=== PATIENT | female | born 1980 | race Caucasian/White ===

== ENCOUNTER 2016-09-26 18:50 | Emergency (ER) | payer MEDICAID ==
[~2016-09-26] VITALS: Wt 77.1 kg
[~2016-09-26 18:50] MED LIST: ALBUTEROL0.09 MG/A2 INH; BACTRIM DS 8001 TA1 PO; CEPHALEXIN500 M1 PO; CLARITIN10 MG PO; CORDROL20 MG PO; DARVOCET N 1001 TAB PO; DAYPRO600 M1 PO; DUONEB 3 MG/3 ML3 M1 INH; LEVAQUIN750 MG PO; MEDROL DOSEPAK4 MG PO; MOTRIN800 MG PO; PHENERGAN25 M1 PO; PREDNICOT20 MG PO; PREDNISONE10 MG PO; PRILOSEC40 MG PO; PROAIR HFA0.09 MG/AC IH; PROVENTIL0.09 MG/AC IH; PYRIDIUM200 MG PO; ROBAXIN750 MG PO; TRAMADOL50 MG PO; ULTRAM50 MG PO; VIBRAMYCIN100 MG PO; XANAX0.25 MG PO; XANAX0.5 MG PO; ZITHROMAX Z PA250 MG PO; ZITHROMAX250 MG PO; ZOFRAN ODT4 MG SL; ZYRTEC10 MG PO
[2016-09-26] MEDS ORDERED: PREDNISONE10 MG PO (19:02)
[2016-09-26] MEDS ORDERED: KEFLEX500 M1 PO (19:02)
[2016-09-26] MEDS ORDERED: BACTRIM DS 8001 TA1 PO (19:02)
[2016-09-26] MEDS ORDERED: CLARITIN10 MG PO (19:02)
== END 2016-09-26 19:19 | disposition home or self-care (01) ==
LOC: ED 18:50
DX: L02.413 Cutaneous abscess of right upper limb (principal); J45.901 Unspecified asthma with (acute) exacerbation; R03.0 Elevated blood-pressure reading, without diagnosis of hypertension; Z88.1 Allergy status to other antibiotic agents

== ENCOUNTER 2016-10-24 18:05 | Inpatient (IN) | payer MEDICAID ==
[~2016-10-24] VITALS: Ht 152.4 cm; Wt 80.3 kg
[2016-10-24] VITALS (7 sets, daily range): BP systolic 104–147; BP diastolic 60–80
--- NOTE | ~2016-10-24 | WRIGHTHP ---
[place], [place] PATIENT HISTORY AND PHYSICAL EXAM NAME: RICK MARES [facility] #: [id number] UNIT #: [id number] ROOM: [facility] DOCTOR: MARIANNA MASON DO BIRTHDATE: [birth year] DOS: 10/25/2016 PRIMARY CARE PHYSICIAN: Dr. Wolfe. The patient was seen and evaluated with the resident on 10/25/2016. Please see the resident's note for further details. ASSESSMENT: 1. Acute asthma exacerbation. 2. Chest tightness secondary to the asthma exacerbation. 3. Dyspnea on exertion secondary to the asthma exacerbation. 4. Anxiety with history of panic attacks. 5. Tobacco abuse. 6. Depression. PLAN: The patient already feels back to normal after her breathing treatments and steroids. She is no longer having chest tightness or shortness of breath. She will be discharged. She will be sent home with prescriptions for steroids, Zithromax and Symbicort. She is to follow up with Dr. Wolfe. MARIANNA MASON DO CM:HISPHYS:PATIENT HISTORY AND PHYSICAL EXAMINATION [id number] MARIANNA MASON DO 10/25/16 1600 interface
[~2016-10-24 18:05] MED LIST changes: +KEFLEX500 M1 PO; -XANAX0.5 MG PO; +XANAX1 MG PO
[2016-10-24 19:02] LABS: BASO # 0.1 10*3/uL (0.0-0.1); EOS # 0.2 10*3/uL (0.0-0.4); EOS % 2.4 % (1.0-4.0); HEMATOCRIT 44.2 % (37.0-47.0); HEMOGLOBIN 14.3 g/dl (12.0-16.0); LYMPH # 2.2 10*3/uL (1.3-4.4); LYMPH % 23.5 % (27.0-41.0); MEAN CORPUSCULAR HGB 30.4 pg (27.0-31.0); MEAN CORPUSCULAR HGB CONC 32.4 g/dl (33.0-37.0); MEAN PLATELET VOLUME 10.7 fl (9.6-12.3); MONO # 0.6 10*3/uL (0.1-1.0); MONO % 6.1 % (3.0-9.0); NEUT # 6.2 10*3/uL (2.3-7.9); NEUT % 66.7 % (47.0-73.0); PLATELET COUNT AUTOMATED 327 10*3/uL (130-400); RED CELL DISTRI WIDTH 13.7 % (0-14.5); WHITE BLOOD COUNT 9.2 10*3/uL (4.8-10.8)
[2016-10-24 19:09] LABS: PROTHROMBIN TIME 10.3 SECONDS (9.0-12.4)
[2016-10-24 19:18] LABS: ALBUMIN 3.7 gm/dl (3.1-4.5); ALKALINE PHOSPHATASE 96 U/L (45-117); BILIRUBIN, TOTAL 0.2 mg/dl (0.2-1.0); BUN 7 mg/dl (7-24); CARBON DIOXIDE 26 mmol/L (21-32); CHLORIDE 107 mmol/L (98-107); CPK 92 U/L (26-192); EST GLOM FILT AFRICAN AMERICAN > 60 ml/min; GLUCOSE 97 mg/dL (65-99); MAGNESIUM 2.1 mg/dL (1.5-2.1); POTASSIUM 4.6 mmol/L (3.5-5.1); SGOT/AST 14 IU/L (3-35); SGPT/ALT 20 U/L (12-78); SODIUM 144 mmol/L (136-145); TOTAL PROTEIN 7.2 gm/dL (6.4-8.2)
[2016-10-24 19:36] LABS: CKMB < 0.5 ng/ml (0.5-3.6); TROPONIN I < 0.015 ng/ml (<0.045)
[2016-10-24 19:40] LABS: BILIRUBIN NEGATIVE (NEGATIVE); BLOOD NEGATIVE (NEGATIVE); CLARITY CLEAR (CLEAR); COLOR YELLOW (YELLOW); GLUCOSE NEGATIVE (NEGATIVE); KETONE NEGATIVE (NEGATIVE); LEUKO ESTERASE NEGATIVE (NEGATIVE); NITRITE NEGATIVE (NEGATIVE); PROTEIN NEGATIVE (NEGATIVE); SPECIFIC GRAVITY <= 1.005 (1.005-1.030); UROBILINOGEN 0.2 E.U./dl (0.2-1.0)
[2016-10-24 19:46] LABS: EPITHELIAL CELLS 20-25; URINE REFLEX COMMENT NO (NO); WBC 0-2 wbc/hpf (0-5)
[2016-10-25] VITALS: BP 144/75
[2016-10-25 01:12] LABS: CPK 90 U/L (26-192)
[2016-10-25 01:15] LABS: CKMB < 0.5 ng/ml (0.5-3.6)
[2016-10-25 06:21] LABS: HEMATOCRIT 39.6 % (37.0-47.0); HEMOGLOBIN 13.1 g/dl (12.0-16.0); MEAN CELL VOLUME 93.8 fl (81.0-99.0); MEAN CORPUSCULAR HGB CONC 33.1 g/dl (33.0-37.0); MEAN PLATELET VOLUME 11.2 fl (9.6-12.3); PLATELET COUNT AUTOMATED 304 10*3/uL (130-400); RED BLOOD COUNT 4.22 10*6/uL (4.10-5.10); RED CELL DISTRI WIDTH 13.8 % (0-14.5); WHITE BLOOD COUNT 11.2 10*3/uL (4.8-10.8)
[2016-10-25 06:42] LABS: CPK 78 U/L (26-192)
[2016-10-25 06:43] LABS: CKMB < 0.5 ng/ml (0.5-3.6)
[2016-10-25 06:44] LABS: PROTHROMBIN TIME 10.3 SECONDS (9.0-12.4)
[2016-10-25 06:57] LABS: ALBUMIN 3.4 gm/dl (3.1-4.5); BUN 12 mg/dl (7-24); CARBON DIOXIDE 22 mmol/L (21-32); CHLORIDE 108 mmol/L (98-107); GLUCOSE 160 mg/dL (65-99); LYMPHOCYTE # 0.9 10*3/uL (1.3-4.4); MAGNESIUM 1.9 mg/dL (1.5-2.1); MONOCYTE # 0.1 10*3/uL (0.1-1.0); NEUTROPHIL # 10.2 10*3/uL (2.3-7.9); NEUTROPHILS 91 % (47-73); SODIUM 142 mmol/L (136-145); TOTAL CELLS COUNTED 100 #CELLS
[2016-10-25 06:58] LABS: PLATELET SUFFICIENCY NORMAL (NORMAL)
[2016-10-25 07:04] LABS: ALKALINE PHOSPHATASE 93 U/L (45-117); BILIRUBIN, TOTAL 0.2 mg/dl (0.2-1.0); CHOLESTEROL 196 mg/dL (<200); EST GLOM FILT AFRICAN AMERICAN > 60 ml/min; FREE T4 0.97 ng/dl (0.76-1.46); HDL CHOLESTEROL 41 mg/dl (40-60); LDL CHOLESTEROL 139 mg/dL (9-159); PHOSPHOROUS 1.6 mg/dL (2.5-4.9); SGOT/AST 15 IU/L (3-35); SGPT/ALT 19 U/L (12-78); TOTAL PROTEIN 6.7 gm/dL (6.4-8.2); TRIGLYCERIDES 80 mg/dl (<150); VLDL CHOLESTEROL 16 mg/dL (6-40)
[2016-10-25 07:19] LABS: POTASSIUM 3.6 mmol/L (3.5-5.1)
[2016-10-25 07:42] LABS: HEMOGLOBIN A1c 5.7 % (4.8-5.6)
[2016-10-25 08:00] VITALS: BP 120/60
[2016-10-25 08:32] LABS: FOLIC ACID 7.37 ng/mL (>5.38); VITAMIN D, 25-HYDROXY 10.1 ng/mL (30-100)
[2016-10-25] MEDS ORDERED: PREDNISONE50 MG PO (10:02)
[2016-10-25] MEDS ORDERED: ZITHROMAX250 MG PO (10:02)
[2016-10-25] MEDS ORDERED: SYMBICORT1 AER INH (10:02)
[2016-10-25] MEDS ORDERED: MUCINEX ER600 MG PO (10:02)
[2016-10-25] MEDS ORDERED: NICOTINE T21 MG/24 H TD (10:02)
== END 2016-10-25 11:35 | disposition home or self-care (01) | DRG 194 ==
LOC: ED 18:05 → EDHOLD 20:42 → 5E 20:42
PROVIDERS: Hospitalist; Nurse Practitioner Family
DX: J18.9 Pneumonia, unspecified organism (principal); J45.31 Mild persistent asthma with (acute) exacerbation; F33.9 Major depressive disorder, recurrent, unspecified; F17.210 Nicotine dependence, cigarettes, uncomplicated; E66.9 Obesity, unspecified; F41.0 Panic disorder [episodic paroxysmal anxiety]; Z98.51 Tubal ligation status; Z82.3 Family history of stroke; Z83.3 Family history of diabetes mellitus; Z79.51 Long term (current) use of inhaled steroids; Z79.899 Other long term (current) drug therapy; Z88.1 Allergy status to other antibiotic agents; Z68.34 Body mass index [BMI] 34.0-34.9, adult

== ENCOUNTER 2017-04-26 14:15 | Emergency (ER) | payer OTHER ==
[~2017-04-26] VITALS: Ht 170.1 cm; Wt 77.1 kg
[~2017-04-26 14:15] MED LIST changes: +MUCINEX ER600 MG PO; +NICOTINE T21 MG/24 H TD; +PREDNISONE50 MG PO; +SYMBICORT1 AER INH
[2017-04-26] MEDS ORDERED: NAPROSYN500 MG PO (15:52)
== END 2017-04-26 15:58 | disposition home or self-care (01) ==
LOC: ED 14:15
DX: S00.12XA Contusion of left eyelid and periocular area, initial encounter (principal); J45.901 Unspecified asthma with (acute) exacerbation; F32.9 Major depressive disorder, single episode, unspecified; F41.0 Panic disorder [episodic paroxysmal anxiety]; F17.200 Nicotine dependence, unspecified, uncomplicated; Z68.34 Body mass index [BMI] 34.0-34.9, adult; Z79.899 Other long term (current) drug therapy; Z88.1 Allergy status to other antibiotic agents; X58.XXXA Exposure to other specified factors, initial encounter; Y93.89 Activity, other specified; Y92.89 Other specified places as the place of occurrence of the external cause; Y99.8 Other external cause status

== ENCOUNTER 2017-09-16 19:47 | Emergency (ER) | payer OTHER ==
[~2017-09-16] VITALS: Ht 157.4 cm; Wt 81.2 kg
[~2017-09-16 19:47] MED LIST changes: +NAPROSYN500 MG PO
[2017-09-16] MEDS ORDERED: PREDNISONE50 MG PO (20:01)
[2017-09-16] MEDS ORDERED: AVPAK AZITHROM250 M1 PO (21:00)
== END 2017-09-16 21:05 | disposition home or self-care (01) ==
LOC: ED 19:47
DX: S20.211A Contusion of right front wall of thorax, initial encounter (principal); J45.901 Unspecified asthma with (acute) exacerbation; F17.200 Nicotine dependence, unspecified, uncomplicated; E66.9 Obesity, unspecified; Z68.34 Body mass index [BMI] 34.0-34.9, adult; Z87.01 Personal history of pneumonia (recurrent); Z98.51 Tubal ligation status; Z90.89 Acquired absence of other organs; Z79.899 Other long term (current) drug therapy; Z88.1 Allergy status to other antibiotic agents; W50.0XXA Accidental hit or strike by another person, initial encounter; Y93.89 Activity, other specified; Y92.89 Other specified places as the place of occurrence of the external cause; Y99.9 Unspecified external cause status

== ENCOUNTER 2017-09-30 04:32 | Emergency (ER) | payer OTHER ==
[~2017-09-30] VITALS: Ht 142.2 cm; Wt 77.1 kg
[~2017-09-30 04:32] MED LIST changes: +AVPAK AZITHROM250 M1 PO
[2017-09-30] MEDS ORDERED: KEFLEX500 M1 PO (06:44)
== END 2017-09-30 06:57 | disposition home or self-care (01) ==
LOC: ED 04:32
DX: S51.011A Laceration without foreign body of right elbow, initial encounter (principal); S66.911A Strain of unspecified muscle, fascia and tendon at wrist and hand level, right hand, initial encounter; S40.022A Contusion of left upper arm, initial encounter; S40.021A Contusion of right upper arm, initial encounter; E66.9 Obesity, unspecified; Z88.1 Allergy status to other antibiotic agents; Z68.34 Body mass index [BMI] 34.0-34.9, adult; Y04.0XXA Assault by unarmed brawl or fight, initial encounter; Y93.89 Activity, other specified; Y92.89 Other specified places as the place of occurrence of the external cause; Y99.8 Other external cause status

== ENCOUNTER 2018-10-20 16:38 | Emergency (ER) | payer OTHER ==
[~2018-10-20] VITALS: Ht 157.4 cm; Wt 80.3 kg
[~2018-10-20 16:38] MED LIST changes: +ASPIRIN ADULT L81 M2 PO; +LISINOPRIL5 MG PO; +PROAIR HFA8.5 GM INH
[2018-10-20] MEDS ORDERED: CEPHALEXIN500 M1 PO (17:28)
[2018-10-20] MEDS ORDERED: Tobrex Ophth S2.5 ML OPH (17:28)
== END 2018-10-20 17:43 | disposition home or self-care (01) ==
LOC: ED 16:38
DX: H04.302 Unspecified dacryocystitis of left lacrimal passage (principal); F17.200 Nicotine dependence, unspecified, uncomplicated; Z88.1 Allergy status to other antibiotic agents

== ENCOUNTER 2018-12-06 19:39 | Emergency (ER) | payer OTHER ==
[~2018-12-06] VITALS: Wt 77.1 kg
[~2018-12-06 19:39] MED LIST changes: +Tobrex Ophth S2.5 ML OPH
[2018-12-06] MEDS ORDERED: IBU800 MG PO (21:06)
== END 2018-12-06 23:15 | disposition home or self-care (01) ==
LOC: ED 19:39
DX: S62.315A Displaced fracture of base of fourth metacarpal bone, left hand, initial encounter for closed fracture (principal); M79.641 Pain in right hand; J45.909 Unspecified asthma, uncomplicated; I10 Essential (primary) hypertension; I25.10 Atherosclerotic heart disease of native coronary artery without angina pectoris; E66.9 Obesity, unspecified; F17.200 Nicotine dependence, unspecified, uncomplicated; Z88.1 Allergy status to other antibiotic agents; Z79.2 Long term (current) use of antibiotics; Z68.30 Body mass index [BMI] 30.0-30.9, adult; W18.39XA Other fall on same level, initial encounter; Y93.89 Activity, other specified; Y92.098 Other place in other non-institutional residence as the place of occurrence of the external cause; Y99.8 Other external cause status

== ENCOUNTER 2020-05-07 21:14 | Emergency (ER) | payer OTHER ==
[~2020-05-07 21:14] MED LIST changes: +IBU800 MG PO
== END 2020-05-08 00:07 | disposition left against medical advice (07) ==
LOC: ED 21:14
DX: J45.909 Unspecified asthma, uncomplicated (principal); R07.89 Other chest pain; Z53.21 Procedure and treatment not carried out due to patient leaving prior to being seen by health care provider

== ENCOUNTER 2020-07-02 17:09 | Emergency (ER) | payer OTHER ==
[~2020-07-02] VITALS: Wt 79.4 kg
[2020-07-02] MEDS ORDERED: PROVENTIL HFA6.7 GM INH (17:22)
[2020-07-02] MEDS ORDERED: Motrin,Rufen800 MG PO (21:14)
[2020-07-02] MEDS ORDERED: AUGMENTIN 875875 MG PO (21:14)
== END 2020-07-02 21:18 | disposition home or self-care (01) ==
LOC: ED 17:09
DX: S62.635A Displaced fracture of distal phalanx of left ring finger, initial encounter for closed fracture (principal); S00.83XA Contusion of other part of head, initial encounter; S40.022A Contusion of left upper arm, initial encounter; S40.021A Contusion of right upper arm, initial encounter; S51.852A Open bite of left forearm, initial encounter; F32.9 Major depressive disorder, single episode, unspecified; J45.909 Unspecified asthma, uncomplicated; F41.9 Anxiety disorder, unspecified; I10 Essential (primary) hypertension; Z88.8 Allergy status to other drugs, medicaments and biological substances; Z79.899 Other long term (current) drug therapy; Z98.890 Other specified postprocedural states; Z98.51 Tubal ligation status; Y08.89XA Assault by other specified means, initial encounter; Y93.89 Activity, other specified; Y92.89 Other specified places as the place of occurrence of the external cause; Y99.8 Other external cause status

== ENCOUNTER 2021-11-23 12:09 | Emergency (ER) | payer OTHER ==
[~2021-11-23] VITALS: Wt 77.1 kg
[~2021-11-23 12:09] MED LIST changes: +AUGMENTIN 875875 MG PO; +Motrin,Rufen800 MG PO; +PROVENTIL HFA6.7 GM INH
[2021-11-23 13:34] LABS: BASO # 0.1 10*3/uL (0.0-0.1); BASO % 0.9 % (0.0-1.0); EOS # 0.1 10*3/uL (0.0-0.4); EOS % 1.4 % (1.0-4.0); HEMATOCRIT 45.3 % (37.0-47.0); LYMPH # 2.1 10*3/uL (1.3-4.4); LYMPH % 26.4 % (27.0-41.0); MEAN CELL VOLUME 95.4 fl (81.0-99.0); MEAN CORPUSCULAR HGB 30.7 pg (27.0-31.0); MEAN CORPUSCULAR HGB CONC 32.2 g/dl (33.0-37.0); MEAN PLATELET VOLUME 10.4 fl (9.6-12.3); MONO # 0.7 10*3/uL (0.1-1.0); MONO % 8.8 % (3.0-9.0); NEUT # 4.9 10*3/uL (2.3-7.9); NEUT % 62.2 % (47.0-73.0); PLATELET COUNT AUTOMATED 288 10*3/uL (130-400); RED BLOOD COUNT 4.75 10*6/uL (4.10-5.10); RED CELL DISTRI WIDTH 14.3 % (0-14.5); WHITE BLOOD COUNT 7.8 10*3/uL (4.8-10.8)
[2021-11-23 13:45] LABS: ACT PARTIAL THROMBO TIME 27.3 SECONDS (20.0-32.1)
[2021-11-23 13:51] LABS: ALKALINE PHOSPHATASE 84 U/L (45-117); BUN 10 mg/dl (7-24); CHLORIDE 108 mmol/L (98-107); CREATININE 0.93 mg/dL (0.55-1.02); LIPASE 123 U/L (73-393); SGOT/AST 16 IU/L (3-35); SGPT/ALT 18 U/L (12-78); SODIUM 139 mmol/L (136-145); TOTAL PROTEIN 7.3 gm/dL (6.4-8.2)
[2021-11-23] MEDS ORDERED: VISTARIL25 M2 PO (15:49)
== END 2021-11-23 16:10 | disposition home or self-care (01) ==
LOC: ED 12:09
PROVIDERS: Physician Assistant
DX: F41.0 Panic disorder [episodic paroxysmal anxiety] (principal); Z88.1 Allergy status to other antibiotic agents; Z90.89 Acquired absence of other organs; Z98.51 Tubal ligation status; Z87.891 Personal history of nicotine dependence

== ENCOUNTER 2021-12-01 17:11 | Emergency (ER) | payer OTHER ==
[~2021-12-01] VITALS: Wt 81.6 kg
[~2021-12-01 17:11] MED LIST changes: +VISTARIL25 M2 PO
[2021-12-01] MEDS ORDERED: BUDESONIDE-FO10.2 G1 INH (17:57)
[2021-12-01 19:12] LABS: BILIRUBIN Negative (Negative); BLOOD 2+ (Negative); CLARITY Clear (Clear); COLOR Yellow (Yellow); GLUCOSE Negative (Negative); KETONE Negative (Negative); LEUKO ESTERASE 2+ (Negative); NITRITE Negative (Negative); PH 5.5 (4.5-8.0); UROBILINOGEN 0.2 E.U./dl (0.0-1.0)
[2021-12-01 19:13] LABS: BASO # 0.1 10*3/uL (0.0-0.1); BASO % 1.1 % (0.0-1.0); EOS % 0.2 % (1.0-4.0); HEMATOCRIT 41.9 % (37.0-47.0); LYMPH # 0.5 10*3/uL (1.3-4.4); LYMPH % 8.5 % (27.0-41.0); MEAN CELL VOLUME 93.7 fl (81.0-99.0); MEAN CORPUSCULAR HGB CONC 34.1 g/dl (33.0-37.0); MEAN PLATELET VOLUME 10.8 fl (9.6-12.3); MONO # 0.6 10*3/uL (0.1-1.0); MONO % 10.3 % (3.0-9.0); NEUT # 4.4 10*3/uL (2.3-7.9); NEUT % 79.5 % (47.0-73.0); PLATELET COUNT AUTOMATED 266 10*3/uL (130-400); RED BLOOD COUNT 4.47 10*6/uL (4.10-5.10); RED CELL DISTRI WIDTH 13.8 % (0-14.5); WHITE BLOOD COUNT 5.6 10*3/uL (4.8-10.8)
[2021-12-01 19:20] LABS: URINE AMPHETAMINES < 1000 (1000ng/ml); URINE BARBITURATES < 200 (200ng/ml); URINE BENZODIAZEPINES < 200 (200ng/ml); URINE CANNABINOIDS (THC) > 50 (50ng/ml); URINE COCAINE < 300 (300ng/ml); URINE METHADONE < 300 (300ng/ml); URINE OPIATES < 300 (300ng/ml)
[2021-12-01 19:24] LABS: URINE PHENCYCLIDINE < 25 (25ng/ml)
[2021-12-01 19:37] LABS: BACTERIA 2+; EPITHELIAL CELLS 31-40; WBC 51-100 wbc/hpf (0-5)
[2021-12-01 20:18] LABS: ALKALINE PHOSPHATASE 83 U/L (45-117); BUN 9 mg/dl (7-24); CHLORIDE 109 mmol/L (98-107); CREATININE 0.92 mg/dL (0.55-1.02); LIPASE 91 U/L (73-393); POTASSIUM 3.4 mmol/L (3.5-5.1); SGOT/AST 13 IU/L (3-35); SGPT/ALT 16 U/L (12-78); SODIUM 138 mmol/L (136-145); TOTAL PROTEIN 6.8 gm/dL (6.4-8.2)
[2021-12-01] MEDS ORDERED: MACROBID100 M1 PO (21:05)
[2021-12-01] MEDS ORDERED: ONDANSETRON4 MG SL (21:05)
== END 2021-12-01 20:18 | disposition home or self-care (01) ==
LOC: ED 17:11
PROVIDERS: Nurse Practitioner Family
DX: U07.1 COVID-19 (principal); N39.0 Urinary tract infection, site not specified; Z98.51 Tubal ligation status; Z90.49 Acquired absence of other specified parts of digestive tract; Z88.1 Allergy status to other antibiotic agents

== ENCOUNTER 2023-02-17 19:45 | Emergency (ER) | payer OTHER ==
[~2023-02-17] VITALS: Ht 165.1 cm; Wt 68.0 kg
[~2023-02-17 19:45] MED LIST changes: +BUDESONIDE-FO10.2 G1 INH; +MACROBID100 M1 PO; +ONDANSETRON4 MG SL
[2023-02-17] MEDS ORDERED: ZITHROMAX250 MG PO (22:02)
[2023-02-17] MEDS ORDERED: PREDNISONE20 M1 PO (22:02)
== END 2023-02-17 22:10 | disposition home or self-care (01) ==
LOC: ED 19:45
DX: J45.901 Unspecified asthma with (acute) exacerbation (principal); F32.A Depression, unspecified; J45.909 Unspecified asthma, uncomplicated; F41.9 Anxiety disorder, unspecified; I10 Essential (primary) hypertension; Z88.8 Allergy status to other drugs, medicaments and biological substances; Z90.89 Acquired absence of other organs; Z98.51 Tubal ligation status; Z98.890 Other specified postprocedural states; F17.290 Nicotine dependence, other tobacco product, uncomplicated

== ENCOUNTER 2023-08-25 19:57 | Emergency (ER) | payer OTHER ==
[~2023-08-25] VITALS: Ht 157.4 cm; Wt 72.6 kg
[~2023-08-25 19:57] MED LIST changes: +PREDNISONE20 M1 PO
[2023-08-25] MEDS ORDERED: ACETAMINOPHEN 325 MG TAB PO ONE (20:15)
[2023-08-25] MEDS ORDERED: HYDROCODONE-AC1 EAC1 PO (21:17)
[2023-08-25] MEDS ORDERED: Acetaminophen/Hydrocodone 5 MG/325 MG TABLET PO ONE (21:20)
== END 2023-08-25 23:15 | disposition home or self-care (01) ==
LOC: ED 19:57
DX: S92.352A Displaced fracture of fifth metatarsal bone, left foot, initial encounter for closed fracture (principal); F32.A Depression, unspecified; J45.909 Unspecified asthma, uncomplicated; F41.9 Anxiety disorder, unspecified; I10 Essential (primary) hypertension; Z88.8 Allergy status to other drugs, medicaments and biological substances; Z98.890 Other specified postprocedural states; Z90.89 Acquired absence of other organs; Z98.51 Tubal ligation status; F17.200 Nicotine dependence, unspecified, uncomplicated; X50.1XXA Overexertion from prolonged static or awkward postures, initial encounter; Y93.89 Activity, other specified; Y92.009 Unspecified place in unspecified non-institutional (private) residence as the place of occurrence of the external cause; Y99.8 Other external cause status